=== PATIENT | female | born 2000 | race Caucasian/White ===

== ENCOUNTER 2020-08-18 15:07 | Emergency (ER) | payer SELFPAY ==
[2020-08-18 15:36] VITALS: BP 103/65; PULSE 82; TEMP 98.7; BMI 32.0
[2020-08-18] MEDS ORDERED: IBUPROFEN 600 MG TABLET (FP) PO ONE ×2 (16:47→17:14)
== END 2020-08-18 17:23 | disposition home or self-care (01) ==
LOC: FER 15:07
PROC: 2W3QX1Z Immobilization of Right Lower Leg using Splint (ICD-10-PCS; principal; 2020-08-18)
DX: S93.401A Sprain of unspecified ligament of right ankle, initial encounter (principal)
CPT/HCPCS: 73610-TC-RT-FY; 99283-25